=== PATIENT | male | born 1995 | race Caucasian/White ===

== ENCOUNTER 2017-02-28 05:09 | Emergency (ER) | payer OTHER ==
[~2017-02-28] VITALS: Ht 188 cm; Wt 102.1 kg
[~2017-02-28 05:09] MED LIST: HYDROCODONE-AP1 EAC6 PO; IBUPROFEN 600600 M1 PO; KEFLEX500 MG PO; NOHOMEMEDICATIONS; NORCO 5-325 TA1 EACH PO
[2017-02-28] MEDS ORDERED: NAPROSYN500 MG PO (05:50)
[2017-02-28] MEDS ORDERED: NORCO 5-325 TA1 EACH PO (05:50)
[2017-02-28] MEDS ORDERED: LIORESAL 10 MG10 MG PO (05:50)
[2017-02-28] MEDS ORDERED: SILVADENE20 GM TP (05:52)
[2017-02-28 06:16] VITALS: BP 155/86
== END 2017-02-28 06:14 | disposition home or self-care (01) ==
LOC: ER 05:09
DX: S09.90XA Unspecified injury of head, initial encounter (principal); S20.319A Abrasion of unspecified front wall of thorax, initial encounter; S30.811A Abrasion of abdominal wall, initial encounter; S20.419A Abrasion of unspecified back wall of thorax, initial encounter; S30.810A Abrasion of lower back and pelvis, initial encounter; S00.511A Abrasion of lip, initial encounter; S00.31XA Abrasion of nose, initial encounter; F10.99 Alcohol use, unspecified with unspecified alcohol-induced disorder; V28.4XXA Motorcycle driver injured in noncollision transport accident in traffic accident, initial encounter; Y93.89 Activity, other specified; Y92.89 Other specified places as the place of occurrence of the external cause; Y99.8 Other external cause status